=== PATIENT | female | born 2005 | race Caucasian/White ===

== ENCOUNTER 2024-06-07 12:39 | Emergency (ER) | payer OTHER ==
[2024-06-07 12:43] VITALS: BP 143/80; PULSE 102; RESP 16; TEMP 97.9; BMI 46.5
[2024-06-07] MEDS ORDERED: ACETAMINOPHEN 500 MG TABLET (FP) ONE (13:34)
[2024-06-07] MEDS: ACETAMINOPHEN 500 MG TABLET (FP) PO ONE (13:37)
== END 2024-06-07 14:01 | disposition home or self-care (01) ==
LOC: JERFT 12:39
DX: S89.91XA Unspecified injury of right lower leg, initial encounter (principal); W19.XXXA Unspecified fall, initial encounter
CPT/HCPCS: 99283-25